=== PATIENT | female | born 1995 | race Caucasian/White ===

== ENCOUNTER 2020-03-05 07:20 | Day surgery (SDC) | payer OTHER ==
[~2020-03-05] VITALS: Ht 177.8 cm; Wt 89.4 kg
[2020-03-05] VITALS (8 sets, daily range): BP systolic 109–128; BP diastolic 70–80
--- NOTE | 2020-03-05 06:49 | Anethesia Preoperative Eval ---
Anesthesia Pre-op PMH/ROS General Date of Evaluation: Mar 05, 2020 Anesthesiologist: Dawson ASA Score: ASA 2 Mallampati Score Class I : Soft palate, uvula, fauces, pillars visible Class II: Soft palate, uvula, fauces visible Class III: Soft palate, base of uvula visible Class IV: Only hard plate visible Mallampati Classification: Class II Surgeon: Simone Diagnosis: Rectal bleeding Surgical Procedure: Colonoscopy Anesthesia History: none Family History: no anesthesia problems Allergies: Coded Allergies: No Known Allergies (Unverified , 03/05/20) Medications: see eMAR Patient NPO?: Yes NPO Date: Mar 05, 2020 NPO Time: 00:00 Past Medical History Cardiovascular: Denies: HTN, CAD, CO, valve dz, arrhythmia, other Pulmonary: Denies: asthma, COPD, MANJU, other Gastrointestinal/Genitourinary: Reports: GERD; Denies: CRI, ESRD, other Neurologic/Psychiatric: Denies: dementia, CVA, depression/anxiety, TIA, other Endocrine: Denies: DM, hypothyroidism, steroids, other HEENT: Denies: cataract (L), cataract (R), glaucoma, [place] (L), [place] (R), other Hematology/Immune: Denies: anemia, DVT, bleeding disorder, other Musculoskeletal/Integumentary: Denies: OA, RA, DJD, DDD, edema, other PSxH Narrative: denies Anesthesia Pre-op Phys. Exam Physician Exam see chart Constitutional: NAD Cardiovascular: RRR Respiratory: CTA Airway Exam Mallampati Score: Class II MO: full ROM: full Anesthesia Pre-op A/P Labs see chart Risk Assessment & Plan Assessment: ASA II Plan: MAC Status Change Before Surgery: No Pre-Antibiotics Drug: N/A Maxine Osman MD Mar 05, 2020 06:49
[2020-03-05] MEDS ORDERED: Lidocaine 1% MPF 10mg/ml 5ml ONE (08:00)
[2020-03-05] MEDS ORDERED: DiphenhydrAMINE 50mg/ml Inj IVP PRN (08:00)
[2020-03-05] MEDS ORDERED: Labetalol 5mg/ml 20ml vial IV PRN (08:00)
[2020-03-05] MEDS ORDERED: LR 1000ml ONE (08:00)
[2020-03-05] MEDS ORDERED: LR 1000ml 1,000 ML IVLG SCH (08:00)
--- NOTE | 2020-03-05 08:23 | Pre-Procedure Note/Attestation ---
Pre-Procedure Note/Attestation Complete Prior to Procedure Planned Procedure: not applicable Procedure Narrative: colonoscopy Indications for Procedure Pre-Operative Diagnosis: BRB, diarrhea Attestation I attest that I discussed the nature of the procedure; its benefits; risks and complications; and alternatives (and the risks and benefits of such alternatives), prior to the procedure, with the patient (or the patient's legal healthcare sales representative). I attest that, if there was a reasonable possibility of needing a blood transfusion, the patient (or the patient's legal healthcare sales representative) was given the [facility] standardized written summary, pursuant to the [place] Blood Safety Act ([place] Health and Safety Code # 1645, as amended). I attest that I re-evaluated the patient just prior to the surgery and that there has been no change in the patient's H&P, except as documented below: Ryan Nichols MD Mar 05, 2020 08:23
--- NOTE | 2020-03-05 09:06 | Immediate Post-Op Evaluation ---
Immediate Post-Op Evalulation Immediate Post-Op Evalulation Procedure: Colonoscopy Date of Evaluation: Mar 05, 2020 Time of Evaluation: 09:09 IV Fluids: 500 Blood Products: 0 Estimated Blood Loss: 0 Urinary Output: 0 Blood Pressure Systolic: 109 Blood Pressure Diastolic: 71 Pulse Rate: 67 Respiratory Rate: 16 O2 Sat by Pulse Oximetry: 100 Temperature (Fahrenheit): 97.3 Pain Score (1-10): 0 Nausea: No Vomiting: No Complications 0 Patient Status: awake, reacts, patent, none Hydration Status: adequate Drug: N/A Maxine Osman MD Mar 05, 2020 09:06
--- NOTE | 2020-03-05 09:06 | 48 Hour Post Anesthesia Eval ---
Post Anesthesia Evaluation Procedure: Colonoscopy Date of Evaluation: Mar 05, 2020 Airway: patent Nausea: No Vomiting: No Pain Intensity: 0 Hydration Status: adequate Cardiopulmonary Status: at baseline Mental Status/LOC: patient returned to baseline Post-Anesthesia Complications: 0 Follow-up care needed: ready to discharge Maxine Osman MD Mar 05, 2020 09:06
--- NOTE | 2020-03-05 09:14 | Endoscopy Procedure Note ---
Endoscopy Procedure Note General Indication for Procedure: diarrhea BRBPR Procedures Performed: colonoscopy Operative Findings/Diagnosis: colitis Specimen: yes Pt Tolerated Procedure Well: Yes Estimated Blood Loss: none Anesthesia Anesthesiologist: Kalin Anesthesia: MAC Medications Medication Given: see anesthesia record Inserted Devices Implant(s) used?: No GI Core Measures 50 yrs or older w/o bx or poly: Not Applicable 10yrs. F/U recommended: Not Applicable Ryan Nichols MD Mar 05, 2020 09:14
--- NOTE | 2020-03-05 09:15 | Brief Operative Note ---
Immediate Post Operative Note Operative Note Chief Complaint: diarrhea BRB Pre-op Diagnosis: BRB, diarrhea Procedure: colon bx Post-op Diagnosis: aguilar colitis Surgeon: nnamdi Anesthesiologist: Kalin Specimen: yes Complications: none Fluids: per anesthesia Implant(s) used?: No Ryan Nichols MD Mar 05, 2020 09:15
--- NOTE | 2020-03-05 09:20 | Short Stay Surgery H&P ---
History of Present Illness History of Present Illness Chief Complaint see typed note HPI Janet Yoon is a 25 year old female who was admitted on for Blood In Stool Patient History Allergies: Coded Allergies: No Known Allergies (Unverified , 03/05/20) Medication History No Active Prescriptions or Reported Meds Physical Exam Vital Signs Last Vital Signs Date Time Temp Pulse Resp B/P (MAP) Pulse Ox O2 Delivery O2 Flow Rate FiO2 03/05/20 09:09 71 16 128/70 100 Room Air 03/05/20 09:04 97.3 6 Labs Laboratory Tests Test 03/05/20 07:25 Urine HCG, Qualitative Negative (NEGATIVE) Plan Attestation Are the patient's medical conditions optimized for surgery? Ryan Nichols MD Mar 05, 2020 09:19
--- NOTE | 2020-03-06 01:44 | Operative Note - Dictated ---
DATE OF OPERATION: 03/05/2020 GASTROENTEROLOGY PROCEDURE REPORT PROCEDURE: Colonoscopy with biopsy. SURGEON: Ryan Nichols MD ANESTHESIA: Please see the separate anesthesiologist notes for details. PRE-ENDOSCOPIC DIAGNOSIS: Six-month history of diarrhea. POST-ENDOSCOPIC DIAGNOSES: 1. Ulcerative colitis involving the entire colon. 2. Normal terminal ileum for about 10 cm. DESCRIPTION OF PROCEDURE: The procedure, its risks, indications, alternatives, and possible complications including but not limited to bleeding, infection, perforation, , and anesthesia complications were explained to the patient and informed consent was obtained. The patient was then sedated in the left lateral decubitus position and a rectal exam was done, which was unremarkable. The colonoscope was then introduced into the rectum and advanced to the cecum and then for 10 cm into the terminal ileum. The colonoscope was then gradually withdrawn and mucosa examined carefully. Examination of the terminal ileum mucosa did not reveal any abnormalities. The entire colon from the rectum to the cecum was involved with inflammatory changes consistent of granularity of the mucosa with loss of mucosal vascularity and easy friability. The colon was uniformly affected throughout. Random biopsies of the terminal ileum, right colon, transverse colon, left colon, and rectum were sent to pathology for review. The colonoscope was removed and the patient was sent to recovery in good condition. COMPLICATIONS: None. ASSESSMENT: This examination is visually notable for inflammatory bowel disease involving the entire colon typical for ulcerative colitis. The biopsy will be evaluated and the patient will be advised regarding treatment options including a steroid course initially to treat the colitis followed by mesalamine or biologic agents for maintenance therapy. RECOMMENDATIONS: 1. Resume oral diet. 2. Follow up biopsy results. 3. Outpatient followup. Thank you for asking me to participate in the care of this patient. Ryan Nichols M.D. DR: GILBERT JOB#: [id number] CC: MD RYAN Bennett M.D. ; FAX#: [phone]
== END 2020-03-05 10:10 | disposition home or self-care (01) ==
LOC: GAS 07:20
DX: R19.7 Diarrhea, unspecified (principal); K51.90 Ulcerative colitis, unspecified, without complications; K52.9 Noninfective gastroenteritis and colitis, unspecified; K21.9 Gastro-esophageal reflux disease without esophagitis
CPT/HCPCS: 45380; 81025; 94003; J2704; J7120; U0002; 94150